=== PATIENT | female | born 1970 | race Caucasian/White ===

== ENCOUNTER 2017-01-30 20:05 | Observation (INO) | payer BC ==
--- NOTE | ~2017-01-30 | HP ---
History And Physical [id number] [place]. [address] NAME: SYMONE GARZA : 70 STATUS : ADM Fallon PAT#: [id number] AGE: 46 ADM/REG DATE : 01/30/17 MR#: [id number] REPORT SERV DATE: 01/31/17 DICTATED BY: JARRED BARRETT DATE: 01/31/17 REPORT STATUS : Draft TRANSCRIBED BY: MODL DATE: 01/31/17 DATE OF ADMISSION: 01/30/2017 ENTERPRISE SERVICES MANAGER: Dr. Trejo who had seen her for bariatric surgery cardiac clearance. COLORMAN: Dr. Gan. CHIEF COMPLAINT: Chest pain. HISTORY OF PRESENT ILLNESS: This is a 46-year-old morbidly obese, pleasant white female, with no history of coronary artery disease. She has a history of atypical chest pain and epigastric pain for which she has seen Dr. Trejo along with the work-in clinic with Dr. Prather in the fall when she had epigastric and chest pain. She does have cardiac risk factors of insulin-dependent diabetes mellitus, hypertension, and morbid obesity as previously mentioned. She presented to the emergency department yesterday afternoon with poorly defined episodes of chest tightness that occurred intermittently for 1 day. There was no exertional component. There is associated shortness of breath. She reports that she has not yet undergone bariatric surgery as she is required to complete 6 months of a weight loss program before consideration. She is followed by Dr. Gan for chronic kidney disease and glomerulosclerosis with a baseline creatinine 1.66. Highest creatinine previously in chart review over the past several years was 2.03. Currently she is feeling well with no complaints. PAST MEDICAL HISTORY: 1. Insulin-dependent diabetes on an insulin pump. This is followed by residential advisor, Dr. Shepard. 2. Diastolic dysfunction with an echocardiogram 03/2016 with hyperdynamic LVEF 70% with mild concentric LVH with increased outflow velocity consistent with hyperdynamic function. 3. Palpitations. 4. Glomerulosclerosis focal segmental, again followed by Dr. Gan. 5. Chronic kidney disease, again followed by Dr. Gan. 6. Hypertension with LVH. 7. Obstructive sleep apnea. 8. Thyroid nodule followed by Dr. Shepard. 9. Morbid obesity with the patient currently on a regimen for weight loss. 10.GERD. 11.Fatty liver. 12.Hiatal hernia. 13.Asthma followed by Dr. Matt Andrade. 14.Arthritis with knee injections by orthopedist, Dr. Jimmy Robb. 15.Cholecystitis. 16.Umbilical hernia. 17.Ovarian cyst. 18.Goiter. 19.Anxiety. History And Physical [address] [place]. [address] NAME: SYMONE GARZA : 70 STATUS : ADM Fallon PAT#: [id number] AGE: 46 ADM/REG DATE : 01/30/17 MR#: [id number] REPORT SERV DATE: 01/31/17 DICTATED BY: JARRED BARRETT DATE: 01/31/17 REPORT STATUS : Draft TRANSCRIBED BY: DONOVAN DATE: 01/31/17 20.Anemia. PAST SURGICAL HISTORY: 1. Tonsillectomy 1977. 2. in 1999. 3. Kidney biopsy 2002. 4. Cystectomy/oophorectomy 2010. 5. Subsequent kidney biopsy 2010. 6. Cystectomy in 2011. 7. Knee injections for arthritis. SOCIAL HISTORY: She has a former tobacco use, quitting years ago. She drinks 1 to 2 drinks per month occasionally. FAMILY HISTORY: Sister suddenly at the age of 2 months. REVIEW OF SYSTEMS: As above per HPI, all other systems reviewed and negative. ALLERGIES: 1. NUMEROUS INCLUDING COCKROACHES, POSITIVE ALLERGY TEST, CATS, REACTION BRONCHITIS. 2. GOODYS EXTRA STRENGTH WITH LIPS SWELL AND HIVES. 3. OYSTERS. REACTION, POSITIVE ALLERGY TEST. 4. VERAPAMIL RASH. 5. MOLD, POSITIVE ALLERGY TEST. HOME MEDICATIONS: List reviewed and is as follows: 1. Furosemide 40 mg p.o. every morning. 2. Allopurinol 100 mg p.o. twice per day. 3. Insulin pump continuous infusion per [employer] insulin pump. 4. Glucagon 1 mg IM subcu p.r.n. hypoglycemia. 5. Levothyroxine 137 mcg p.o. every morning. 6. Vitamin D 2000 units p.o. every morning. 7. Ferrous sulfate 325 mg p.o. every morning. 8. Vitamin D over the counter 2 mg p.o. every morning. 9. Triamcinolone 1 application topically as needed for rash behind the ears. 10.Epinephrine, auto injector 0.3 mg IM p.r.n. anaphylactic allergy reaction. PHYSICAL EXAMINATION: VITAL SIGNS: Body mass index 47.5, height 160 cm, and weight 121.59 kg. Oxygen saturation 98% on room air, temperature 97.6, pulse 96, respiratory rate 14, and blood pressure initially was 208/92, then came down to 125/46, more recently 168/74. GENERAL: Well developed, well-nourished. Morbidly obese, in no apparent distress. HEENT: Anicteric. Normal EOM. Head normocephalic. PERRLA, no xanthelasma. NECK: Supple. No JVD. Carotids normal without bruits. LUNGS: Clear to auscultation bilaterally anterior and posterior. Respirations even and unlabored. History And Physical [address] [address] NAME: SYMONE GARZA : 70 STATUS : ADM Fallon PAT#: [id number] AGE: 46 ADM/REG DATE : 01/30/17 MR#: [id number] REPORT SERV DATE: 01/31/17 DICTATED BY: JARRED BARRETT DATE: 01/31/17 REPORT STATUS : Draft TRANSCRIBED BY: DONOVAN DATE: 01/31/17 CARDIAC: S1, S2 regular rate and rhythm. No murmurs, rubs, or gallops. No chest wall tenderness. ABDOMEN: Normal bowel sounds. Soft and nontender to palpation. No masses or organomegaly. EXTREMITIES: No peripheral edema. DP/PT and radial pulses palpable bilaterally. No clubbing or cyanosis. SKIN: Warm and dry. Normal turgor. No pallor or cyanosis. MUSCULOSKELETAL: Moving all extremities x4. Normal muscle strength. NEURO/PSYCH: Alert and oriented with appropriate affect. LABORATORY DATA: BMP: Sodium 140, potassium 4.2, creatinine 2.92, this was yesterday at 1525 hours. Glucose elevated at 241. Magnesium 1.9. CBC: White blood cell count 9.1, hemoglobin 12, hematocrit 36.2, and platelets 327. Troponin less than 0.02 x2. BNP was normal at 15. STUDIES: 1. Chest x-ray, PA and lateral, revealed no acute cardiopulmonary abnormality. 2. EKGs personally interpreted x2. Normal sinus rhythm with nonspecific ST changes x2. 3. Telemetry sinus rhythm. ASSESSMENT AND PLAN: 1. Precordial chest pain. There were 2 negative troponins. EKG, no acute ischemia. Chest pain with vaguely defined episodes of chest tightness. Given the patient's cardiac risk factors of morbid obesity, hypertension, and insulin-dependent diabetes mellitus, but we will plan a cardiac PET. If it is low risk with no ischemia, RN is to discharge the patient home with followup with her primary care provider in 1 to 2 weeks and with Cardiology in one month. Please note we are unsure whether the PET will be facilitated today or tomorrow. 2. Hypertension with elevated blood pressure in the ER. Please note at the last office visit, there was discussion that she should be on diltiazem per seater grinder. She is not currently taking any medications for blood pressure. I encouraged her to closely check her blood pressure, daily record and she may need to be restarted on blood pressure medications. She will discuss further with her primary care provider. While here in the hospital, I will add p.r.n. hydralazine as needed. We could also consider starting amlodipine post stress test if she continues to have elevated blood pressure while here. 3. Insulin-dependent diabetes mellitus. She does use her home insulin pump and it is okay for her to use that here along with sliding scale insulin. 4. Morbid obesity. The patient reports she is in a weight loss program prior to consideration for bariatric surgery. She is to follow up with them. 5. Acute kidney injury on chronic kidney disease in a patient with a history of glomerulosclerosis. This is followed closely by Dr. Gan. We will give fluid hydration at this time as her creatinine was elevated yesterday afternoon at 1525 hours at 2.92. Her baseline appears to be 1.66 to 2.03. She is moderately above that. I will recheck a BMP after fluid hydration. She will also require a BMP check 2 days post discharge. I will ask to be sent to her primary care provider and Dr. Gan. I have discontinued the Lasix as she has no evidence of heart failure at this time. We will also check a urinalysis. The patient was also seen by netting weaver for [place] History And Physical [address] [place] [address] NAME: KAYLASYMONE JILL : 70 STATUS : ADM Fallon PAT#: [id number] AGE: 46 ADM/REG DATE : 01/30/17 MR#: [id number] REPORT SERV DATE: 01/31/17 DICTATED BY: JARRED BARRETT DATE: 01/31/17 REPORT STATUS : Draft TRANSCRIBED BY: DONOVAN DATE: 01/31/17 Heart Ronda rounding for CPOU who addressed the precordial chest pain. SALO/DONOVAN Jarred Barrett NP / [id number] CC: Lesley Urbina, MSN, PROGRAM COUNSELOR-BC Nelsy Dias M.D. James A Tumlin, M.D.
[2017-01-30 15:34] LABS: BASOPHILS 0.2 %; BASOPHILS ABSOLUTE 0.02 10/3/uL (0.0-0.16); EOSINOPHILS 2.2 %; HEMATOCRIT 36.2 % (36.0-48.0); IMMATURE GRANULOCYTES 0.2 %; IMMATURE GRANULOCYTES ABSOLUTE 0.02 10/3/uL (0.0-0.11); LYMPHOCYTES 29.1 %; LYMPHOCYTES ABSOLUTE 2.65 10/3/uL (0.67-4.30); MEAN CORPUS HGB CONC 33.1 g/dL (32.0-36.0); MEAN CORPUSCULAR HEMOGLOB 29.9 pg (26.0-34.0); MEAN PLATELET VOLUME 9.7 fL (9.2-13.0); MONOCYTES 6.9 %; MONOCYTES ABSOLUTE 0.63 10/3/uL (0.21-1.20); NEUTROPHILS 61.4 %; PLATELET COUNT 327 10/3/uL (150-400); RBC DISTRIBUTION WIDTH 14.8 % (12.0-16.0); RED CELL COUNT 4.02 10/6/uL (4.0-5.6); WHITE BLOOD CELLS 9.1 10/3/uL (4.5-10.5)
[2017-01-30 15:39] LABS: MANUAL DIFF NO %
[2017-01-30 15:46] LABS: PROTIME (NOT ORD) 13.3 SEC (12.0-14.5)
[2017-01-30 15:47] LABS: PARTIAL THROMBO TIME 31.5 SEC (22.5-37.2)
[2017-01-30 15:51] LABS: CALCIUM, SERUM 8.8 MG/DL (8.5-10.4); CHEST PAIN PROFILE TAT 0 Hrs 23 Mins; CHLORIDE, SERUM 103 MMOL/L (96-112); CO2 (CARBON DIOXIDE) 23 MMOL/L (24-34); POTASSIUM, SERUM 4.2 MMOL/L (3.5-5.3); SODIUM, SERUM 140 MMOL/L (135-148); TROPONIN I <0.02 NG/ML (<0.05)
[2017-01-30 15:52] LABS: BUN (BLOOD UREA NITROGEN) 51 MG/DL (6-23); CREATININE 2.92 MG/DL (0.55-1.02); GFR AFRICAN AMERICAN 21 ML/MIN (>=60); GFR NON AFRICAN AMERICAN 18 ML/MIN (>=60); GLUCOSE, SERUM 241 MG/DL (60-99)
[~2017-01-30 20:05] MED LIST: BENTYL10 PO; CARD30 PO; FISH OIL1200 MG PO; GLUCOTRO10 PO; GLUCPH PO; INSPRA25 PO; L80 PO; LIPITOR40 PO; LISINOPRIL40 MG PO; MULTIPLE VIT PO; NOVLOGPUMP SC; PROAIR HFA INH; SYN112 PO; TYLENOL ARTH650 MG PO; VERAMYST27.5 MCG NAS; VITAMIN D1000 UNI1 PO; X5 PO
[2017-01-30] MEDS ORDERED: Z100 PO (22:12)
[2017-01-30] MEDS ORDERED: L40 PO (22:12)
[2017-01-30] MEDS ORDERED: NOVLOGPUMP SC (22:14)
[2017-01-30] MEDS ORDERED: GLUCAGON IM/SC (22:14)
[2017-01-30] MEDS ORDERED: SYNTHROID137 MCG PO (22:15)
[2017-01-30] MEDS ORDERED: VITAMIN D2000 UNIT PO (22:17)
[2017-01-30] MEDS ORDERED: FERROUS SULF325 M1 PO (22:18)
[2017-01-30] MEDS ORDERED: VITC500 PO (22:20)
[2017-01-30] MEDS ORDERED: EPIPEN0.3 IM (22:22)
[2017-01-30] MEDS ORDERED: TRIAMCINOLONE TOP (22:22)
[2017-01-31 16:24] LABS: BUN (BLOOD UREA NITROGEN) 53 MG/DL (6-23); CALCIUM, SERUM 8.1 MG/DL (8.5-10.4); CHLORIDE, SERUM 109 MMOL/L (96-112); CO2 (CARBON DIOXIDE) 22 MMOL/L (24-34); CREATININE 2.45 MG/DL (0.55-1.02); GFR AFRICAN AMERICAN 26 ML/MIN (>=60); GFR NON AFRICAN AMERICAN 23 ML/MIN (>=60); GLUCOSE, SERUM 121 MG/DL (60-99); POTASSIUM, SERUM 3.6 MMOL/L (3.5-5.3); SODIUM, SERUM 144 MMOL/L (135-148)
[2017-01-31] MEDS ORDERED: PLAVIX PO (17:27)
[2017-01-31] MEDS ORDERED: ASAB PO (17:27)
[2017-01-31] MEDS ORDERED: CRESTOR20 MG PO (17:28)
[2017-01-31] MEDS ORDERED: NITROQUICK0.4 MG SL (17:29)
[2017-03-18] MEDS ORDERED: CRESTOR20 MG PO (16:33)
[2017-03-18] MEDS ORDERED: CLARIT10 PO (16:33)
[2017-03-18] MEDS ORDERED: PLAVIX PO (16:33)
[2017-03-18] MEDS ORDERED: APRES50 PO (16:33)
[2017-03-18] MEDS ORDERED: VITAMIN D2000 UNIT PO (16:34)
[2017-03-18] MEDS ORDERED: NTG150 SL (16:34)
[2017-03-18] MEDS ORDERED: FE C PO (16:34)
[2017-03-20] MEDS ORDERED: ASAB PO (08:13)
[2017-03-20] MEDS ORDERED: CARDCD180 PO (09:11)
== END 2017-01-31 17:55 | disposition home or self-care (01) ==
LOC: ER 20:05 → CDU1 22:00 → SSU2 22:04
PROVIDERS: Emergency Medicine; Nurse Practitioner Family
DX: R07.2 Precordial pain (principal); E66.01 Morbid (severe) obesity due to excess calories; N18.9 Chronic kidney disease, unspecified; I12.9 Hypertensive chronic kidney disease with stage 1 through stage 4 chronic kidney disease, or unspecified chronic kidney disease; E11.22 Type 2 diabetes mellitus with diabetic chronic kidney disease; G47.33 Obstructive sleep apnea (adult) (pediatric); E04.1 Nontoxic single thyroid nodule; K21.9 Gastro-esophageal reflux disease without esophagitis; K44.9 Diaphragmatic hernia without obstruction or gangrene; J45.909 Unspecified asthma, uncomplicated; M19.90 Unspecified osteoarthritis, unspecified site; F41.9 Anxiety disorder, unspecified; D63.1 Anemia in chronic kidney disease; E04.9 Nontoxic goiter, unspecified; Z98.890 Other specified postprocedural states; Z90.722 Acquired absence of ovaries, bilateral; Z87.891 Personal history of nicotine dependence; Z88.8 Allergy status to other drugs, medicaments and biological substances; Z79.899 Other long term (current) drug therapy
CPT/HCPCS: 71020; 78492; 80048; 82962; 83735; 83880; 84484; 85025; 85610; 85730; 93005; 93017; 99285; A9270-GY; A9555; G0378; J2785